=== PATIENT | male | born 1935 | race Caucasian/White ===

== ENCOUNTER → 2019-03-14 12:48 | Outpatient (CLI) | payer MEDICARE, SELFPAY ==
--- NOTE | 2019-03-14 12:59 | MR_ITS ---
MR lumbar spine wo con, MR 3-d myelogram/MRCP HISTORY: Prior HX lumbar surgery X10yrs. LT sided LBP. LT leg pain, numbness, and tingling X3wks. No trauma. ITS.REASON: BACK PAIN ORDERING PHYSICIAN: Brenton Harding MD PATIENT AGE: 83 years Comparison: CT 10-13-10. TECHNIQUE: Standard multiplanar multiecho sequences are performed without contrast. 3-D MIP and myelographic images are also rendered and reviewed FINDINGS: There is normal alignment. The spinal cord ends at the T12 level. T11-T12: Degenerative disc disease with minimal ridging along the posterior aspect of the T11 vertebral body. T12-L1: Degenerative disc disease. L1-L2: Mild disc desiccation. L2-L3: Minimal bulging disc along with facet and ligamentum flavum hypertrophy with moderate bilateral lateral recess and foraminal narrowing. There is a small amount of fluid in the facet joints at this level both sides. L3-L4: Degenerative disc disease with bulging disc. There is minimal region of the posterior aspect of the L3 vertebral body. There is severe facet and ligamentum hypertrophy with severe bilateral lateral recess and foraminal narrowing with canal stenosis. L4-L5: Degenerative disc disease with bulging disc along with facet and ligamentum flavum hypertrophy with severe bilateral foraminal narrowing slightly greater on the left and moderate bilateral lateral recess narrowing. Prior laminectomy posteriorly at L4 and L5 L5-S1: There is degenerative disc disease with bulging disc which is eccentric toward the left along with facet and ligamentum flavum hypertrophy with severe bilateral foraminal narrowing greater left severe left lateral recess narrowing. There is impingement upon the left S1 nerve root. There may also be impingement upon the exiting nerve root at the neural foramina at the L3-L4 and L4-5 level. No extruded herniated disc. Incidental note is made of a large left renal cyst which is incompletely imaged. 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 Please see above for detailed description at each level. Postsurgical changes L4 and L5
== END ==
PROVIDERS: PCP Family Medicine; Visit Provider Family Medicine
DX: M54.5 Low back pain (principal)
CPT/HCPCS: 72148; 76376

== ENCOUNTER → 2021-04-24 13:19 | Outpatient (POV) | payer MEDICARE, SELFPAY ==
[2021-04-24 14:03] VITALS: BP 120/57; PULSE 73; RESP 18; O2SAT 96; BMI 25.9
--- NOTE | 2021-04-24 14:10 | HMH.PMCON ---
Assessment and Plan (1) Degenerative joint disease (DJD) of lumbar spine Status: Chronic Category: Medical Code(s): M47.816 - Spondylosis without myelopathy or radiculopathy, lumbar region (2) Lumbar radiculopathy Status: Chronic Category: Medical Code(s): M54.16 - Radiculopathy, lumbar region - Assessment and plan all Dx Assessment and Plan for all problems:: We will schedule the patient for a lumbar epidural steroid injection at L5-S1. Per his MRI report, he does have impingement at S1. We will schedule him for the injection and see him back afterwards for reevaluation of symptoms. He is not on any anticoagulation therapy. Patient is not diabetic. Risks and benefits of the procedure have been explained to the patient. Patient would like to proceed with the procedure. Possible side effects of corticosteroids have been discussed with the patient. Patient has been instructed to contact the clinic with any concerns before the next appointment. Dr. Dick has reviewed this note and agrees with this plan of care. This note was dictated using voice recognition software and make contain errors or omissions. HPI - Data of Consult Patient: new to practice Consult date: 04/24/21 Requesting Physician: Alycia Fletcher APRN Primary Care Provider: Niurka Wren APRN - Consult Narrative Reason for consult: Low back pain History of present illness: Mr. Stone is a 85 year old male who presents today for consultation for chronic low back pain. He was referred to us by Guillermina Ott. Patient states he has had low back pain for many years. He is notably kyphotic. He says that the pain is nonradicular. Primarily in his left low back area. He says that he does continue to swim and play golf regularly. This does give him some relief. He is unable to stand upright due to significant pain. He says when he is swimming, however, he has no problems standing up right without pain. He does rate his pain a 7 out of 10 today. He has managed with oral medications by his primary care provider. He was sent to us for possible injective therapy. He is interested in implanted devices if injections do not give him relief. He is managed with [place] by his primary care provider. Patient says that leaning forward does give him relief. He denies any heaviness or weakness in his lower extremities, but does use a walker for ambulation. CC: Alycia Fletcher APRN [facility] History I have reviewed the patient's past medical history: Yes Medical History: Reports:: Congestive Heart Failure, Diabetes Mellitus Type 2, Hyperlipidemia, Hypertension *Have you ever received a pneumonia vaccine?: Yes *Have you received a flu vaccine this season?: Yes - *Social History Smoking Status: Never smoker Alcohol Intake: never Alcohol Intake Frequency:: other Substance Use Type: denies use *Occupational Status:: retired Household Members: spouse *Travel in the last 8 weeks: None Family Hx:: Unable to obtain Review of Systems - Review of Systems Review of Systems General: No recent weight changes, no fever, no sleep disturbances Respiratory: No cough, no shortness of air, no recurring pulmonary infections Cardiovascular/peripheral vascular: No chest pain, no palpitations, no edema, no shortness of breath Gastrointestinal: No new onset incontinence, normal bowel movements reported Genitourinary: No new onset incontinence Musculoskeletal: Low back pain Psychiatric: Normal mood/affect Neurological: [Denies weakness in extremities], [denies balance issues] Meds Home Medications Medication Instructions Recorded Confirmed Type alprazolam 0.5 mg disintegrating 0.5 mg PO BID 09/27/18 09/27/18 History tablet ascorbate calcium (vitamin C) 500 600 mg PO DAILY tab 09/27/18 10/29/20 History mg tablet ascorbic acid (vitamin C) 500 mg 1,000 mg PO cap 09/27/18 10/29/20 History capsule aspirin 81 mg tablet,delayed 81 mg PO D
== END ==
PROVIDERS: PCP Nurse Practitioner; Visit Provider Clinical Nurse Specialist Family Health
DX: M47.896 Other spondylosis, lumbar region (principal); M54.16 Radiculopathy, lumbar region
CPT/HCPCS: 99202; G0463

== ENCOUNTER 2021-05-09 10:33 | Day surgery (SDC) | payer MEDICARE, SELFPAY ==
[2021-05-09 11:16] VITALS: BP 119/52; PULSE 61; RESP 18; TEMP 36.4; O2SAT 97; BMI 26.0
[2021-05-09 12:14] VITALS: BP 151/74; PULSE 51; RESP 18; O2SAT 96
[2021-05-09 12:15] VITALS: BP 138/74; PULSE 58; RESP 18; O2SAT 100
--- NOTE | 2021-05-09 12:34 | P.PCN_ITS ---
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 He has tried and failed conservative treatment including oral pain medication and home stretching program for greater than 6 weeks. He states that he has previously undergone a lumbar epidural steroid injection in the past few years ago but denies any pain relief from this injection. He states that his pain is worse with standing and walking for long periods, better with rest including sitting down or laying down. He also states the pain is better with leaning forward with the aid of a shopping cart. His last MRI per chart review was in February 2019 which demonstrated multilevel degenerative changes including hypertrophied ligamentum flavum at L2- L3, L3-4, L4-5, and L5-S1. It appears that the patient has undergone surgery with laminectomy at L4-L5 and L5-S1. The plan for today is for the patient to undergo a lumbar epidural steroid injection at L5-S1 with epidurogram under fluoroscopy. Procedure Details:: Informed consent was obtained and the risk and benefits of the procedure was explained to the patient. The patient was taken to the procedure room. The patient was placed prone on the procedure table. The patient was prepped and draped in sterile fashion. C-arm fluoroscopy was used to view the lumbar spine. Skin and subcutaneous tissues were anesthetized using lidocaine. I placed an 18-gauge epidural needle and advanced into the L5-S1 interspace using fluoroscopic guidance and [id number] to air and saline. After confirmation of needle placement in the epidural space with dye, we performed an epidurogram which demonstrated stenosis at L2-L3 and L3-L4. Next, I injected 1 mL of lidocaine 1.0% with Depo-Medrol 80 mg. Patient tolerated the procedure well with no complications. Plan and Disposition:: We will follow-up with this patient in 2 weeks and reevaluate pain symptoms at that time. I discussed epidurogram findings with the patient which include stenosis at L2-L3 and L3-L4 bilaterally. I discussed with him that should he only experience very minimal short-term pain relief with this injection he may benefit from the mild procedure in the future. I gave him a brochure of the mild procedure today. We will follow-up at the next visit.
[2021-05-09 12:45] VITALS: BP 126/53; PULSE 57; RESP 18; O2SAT 97
== END 2021-05-09 12:45 | disposition home or self-care (01) ==
LOC: SC.PAINP 10:35
PROVIDERS: PCP Nurse Practitioner; Visit Provider Anesthesiology Pain Medicine
DX: M51.16 Intervertebral disc disorders with radiculopathy, lumbar region (principal); M48.062 Spinal stenosis, lumbar region with neurogenic claudication; E78.5 Hyperlipidemia, unspecified; E11.9 Type 2 diabetes mellitus without complications; I11.0 Hypertensive heart disease with heart failure; I50.9 Heart failure, unspecified
CPT/HCPCS: 62323; 76000; J1040; Q9966

== ENCOUNTER → 2021-06-09 10:24 | Outpatient (POV) | payer MEDICARE, SELFPAY ==
[2021-06-09 10:35] VITALS: BP 130/44; PULSE 70; RESP 18; O2SAT 97; BMI 27.7
--- NOTE | 2021-07-24 08:09 | HMH.PAINSOAP ---
[facility] Pain Management SOAP Note Subjective:: Patient is an 85-year-old white male who presents today for follow-up. He is following neck after lumbar epidural steroid injection. Patient reports that he got approximately 60 to 70% relief and is doing well at this time. He says he is much more active and able to walk with less pain. He rates his pain a 3 out of 10 today. Review of Systems General: No recent weight changes, no fever, no sleep disturbances Respiratory: No cough, no shortness of air, no recurring pulmonary infections Cardiovascular/peripheral vascular: No chest pain, no palpitations, no edema, no shortness of breath Gastrointestinal: No new onset incontinence, normal bowel movements reported Genitourinary: No new onset incontinence Musculoskeletal: Intermittent low back pain Psychiatric: [Normal mood/affect] Neurological: [Denies weakness in extremities], [denies balance issues] Objective:: Physical exam General: Alert and oriented x3, no acute distress, pleasant and cooperative, [on room air] Lungs: Respirations even and unlabored, symmetrical chest expansion Eyes: PERRL Musculoskeletal: Flexion and extension of lumbar [spine] somewhat guarded secondary to pain, strength in upper and lower extremities [5/5], [antalgic gait noted] Neurological: Speech clear, [projection camera operator equal], no gross sensory deficit Assessment:: Degenerative disc disease lumbar spine with lumbar radiculopathy symptoms Plan:: Patient is doing well overall since his epidural steroid injection. We will follow-up with him as needed if the pain does return. Patient has been instructed to contact the clinic with any concerns before the next appointment. Dr. Dick has reviewed this note and agrees with this plan of care. This note was dictated using voice recognition software and make contain errors or omissions. [facility] History I have reviewed the patient's past medical history: Yes Medical History: Reports:: Cancer (chronic leukemia), Congestive Heart Failure, Diabetes Mellitus Type 2, Hyperlipidemia, Hypertension Denies:: Diabetes Mellitus Type 1, Internal Pacemaker, MRSA, Seizures *Have you ever received a pneumonia vaccine?: Yes *Have you received a flu vaccine this season?: Yes Other Medical History: Denies: Blood Transfusion Reaction Laterality Cases: Right: Total Hip Replacement Other Surgeries: Yes: Cardiac Catheterization, Coronary Stent. No: Pacemaker Amputation: No Fractures: Yes (hip fracture at 45 palying ball) - *Social History Smoking Status: Never smoker Alcohol Intake: never Alcohol Intake Frequency:: other Substance Use Type: denies use *Occupational Status:: retired Housing: house Household Members: spouse *Travel in the last 8 weeks: None Family Hx:: Unable to obtain
== END ==
PROVIDERS: PCP Nurse Practitioner; Visit Provider Clinical Nurse Specialist Family Health
DX: M51.16 Intervertebral disc disorders with radiculopathy, lumbar region (principal)
CPT/HCPCS: 99212; G0463